=== PATIENT | male | born 1980 | race Caucasian/White ===

== ENCOUNTER 2020-01-27 16:57 | Emergency (ER) | payer BC, OTHER ==
[~2020-01-27] VITALS: Ht 180 cm; Wt 109.0 kg
--- NOTE | 2020-01-27 17:18 | ED General ---
General Stated Complaint: FALL Source of Information: Patient Exam Limitations: No Limitations History of Present Illness Date Seen by Provider: Jan 27, 2020 Time Seen by Provider: 17:14 Initial Comments To ER with reports of a fall. He was up on the top rung of a ladder working on his soffit on his house. The ladder tipped and he fell landing on his right side. He complains of pain with limited range of motion to the right shoulder. Did not hit his head and denies neck pain. He does have some posterior and lateral left flank pain. He denies any numbness or tingling of extremities. He recalls all events. Timing/Duration: 1/2 Hour Severity: Moderate Associated Systoms: Denies Symptoms; No Cough, No Headaches, No Seizure, No Shortness of Air, No Syncope, No Weakness Allergies and Home Medications Allergies Coded Allergies: No Known Drug Allergies (Unverified , 05/13/10) Home Medications No Active Prescriptions or Reported Meds Patient Home Medication List Home Medication List Reviewed: Yes Review of Systems Review of Systems Constitutional: see HPI EENTM: see HPI Respiratory: no symptoms reported Cardiovascular: no symptoms reported Musculoskeletal: see HPI, joint pain, muscle pain Skin: no symptoms reported Psychiatric/Neurological: No Symptoms Reported Hematologic/Lymphatic: No Symptoms Reported Past Yyqnpry-Idirin-Zfstty Hx Patient Social History Recent Foreign Travel: No Contact w/Someone Who Travel: No Past Medical History Reproductive Disorders: No Physical Exam Vital Signs Vital Signs - First Documented 01/27/20 17:00 Temp 36.2 Pulse 69 Resp 18 B/P (MAP) 149/93 (111) Pulse Ox 97 Capillary Refill : Height, Weight, BMI Height: '" Weight: lbs. oz. kg; BMI Method: General Appearance: No Apparent Distress, WD/WN, Other (alert and oriented, walks into room 6 without antalgic gait, alert and oriented GCS 15. Offered pain medication but states he doesn't hurt that bad.) Eyes: Bilateral Eye Normal Inspection, Bilateral Eye PERRL, Bilateral Eye Other (no Francisco sign or hemotympanum.) HEENT: PERRL/EOMI, TMs Normal Neck: Full Range of Motion, Normal Inspection, Non Tender; No Tender Lateral, No Tender Midline Respiratory: No Accessory Muscle Use, No Respiratory Distress Cardiovascular: Regular Rate, Rhythm, Normal Peripheral Pulses Gastrointestinal: Normal Bowel Sounds, Soft, Tenderness (minimal left lateral and posterior flank tenderness but no bruising or ecchymosis or abrasion) Extremity: Normal Capillary Refill, Normal Inspection Neurologic/Psychiatric: Alert, Oriented x3 Skin: Normal Color, Warm/Dry Progress/Results/Core Measures Suspected Sepsis SIRS Temperature: Pulse: Respiratory Rate: Laboratory Tests 01/27/20 17:15: White Blood Count 11.2H Blood Pressure / Mean: Laboratory Tests 01/27/20 17:15: Platelet Count 350 Results/Orders Lab Results Laboratory Tests Test 01/27/20 17:15 Range/Units White Blood Count 11.2 H 4.3-11.0 10^3/uL Red Blood Count 4.81 4.30-5.52 10^6/uL Hemoglobin 15.0 13.3-17.7 g/dL Hematocrit 45 40-54 % Mean Corpuscular Volume 93 80-99 fL Mean Corpuscular Hemoglobin 31 25-34 pg Mean Corpuscular Hemoglobin Concent 34 32-36 g/dL Red Cell Distribution Width 12.7 10.0-14.5 % Platelet Count 350 130-400 10^3/uL Mean Platelet Volume 11.6 9.0-12.2 fL Immature Granulocyte % (Auto) 1 % Neutrophils (%) (Auto) 64 42-75 % Lymphocytes (%) (Auto) 29 12-44 % Monocytes (%) (Auto) 5 0-12 % Eosinophils (%) (Auto) 1 0-10 % Basophils (%) (Auto) 0 0-10 % Neutrophils # (Auto) 7.1 1.8-7.8 10^3/uL Lymphocytes # (Auto) 3.3 1.0-4.0 10^3/uL Monocytes # (Auto) 0.6 0.0-1.0 10^3/uL Eosinophils # (Auto) 0.1 0.0-0.3 10^3/uL Basophils # (Auto) 0.0 0.0-0.1 10^3/uL Immature Granulocyte # (Auto) 0.1 0.0-0.1 10^3/uL My Orders Orders - ESTEFANI BENTLEY APRN Cbc With Automated Diff (01/27/20 17:08) Ed Iv/Invasive Line Start (01/27/20 17:08) Ct Abdomen/Pelvis W (01/27/20 17:08) Shoulder, Right, 3 Views (01/27/20 17:08) Chest Pa/Lat (2 View) (01/27/20 17:20) Iohexol Injection (Omnipaque 350 Mg/Ml 1 (01/27/20 18:00) Received Contrast (Hold Metformin- Contr (01/27/20 18:00) Ns (Ivpb) (Sodium Chloride 0.9% Ivpb Bag (01/27/20 18:00) Medications Given in ED Current Medications Medications Dose Ordered Sig/Sergo Route Start Time Stop Time Status Last Admin Dose Admin Iohexol 100 ml ONCE ONCE IV 01/27/20 18:00 01/27/20 18:01 DC 01/27/20 17:56 100 ML Sodium Chloride 100 ml ONCE ONCE IV 01/27/20 18:00 01/27/20 18:01 DC 01/27/20 17:56 80 ML Vital Signs/I&O 01/27/20 17:00 Temp 36.2 Pulse 69 Resp 18 B/P (MAP) 149/93 (111) Pulse Ox 97 Capillary Refill : Departure Impression Primary Impression: Fall Additional Impressions: Internal derangement of right shoulder Muscle strain Disposition: HOME, SELF-CARE Condition: Stable Departure-Patient Inst. Decision time for Depature: 18:04 Referrals: CYN QUICK MD (PCP) Primary Care Physician Patient Instructions: Muscle Strain (DC), Shoulder Pain (DC) Add. Discharge Instructions: 1. Follow-up with your doctor next week for recheck 2. Wear the sling as needed for comfort. Take pain medication as directed. Return to ER for any worsening. Scripts No Active Prescriptions or Reported Meds ESTEFANI BENTLEY APRN Jan 27, 2020 17:18
[2020-01-27 17:21] LABS: BASOPHILS % (AUTO) 0 % (0-10); EOSINOPHILS # (AUTO) 0.1 10^3/uL (0.0-0.3); EOSINOPHILS % (AUTO) 1 % (0-10); HEMATOCRIT 45 % (40-54); LYMPHOCYTES # (AUTO) 3.3 10^3/uL (1.0-4.0); LYMPHOCYTES % (AUTO) 29 % (12-44); MEAN CORPUSCULAR HEMOGLOBIN 31 pg (25-34); MEAN CORPUSCULAR HGB CONC 34 g/dL (32-36); MEAN CORPUSCULAR VOLUME 93 fL (80-99); MEAN PLATELET VOLUME 11.6 fL (9.0-12.2); MONOCYTES # (AUTO) 0.6 10^3/uL (0.0-1.0); MONOCYTES % (AUTO) 5 % (0-12); NEUTROPHILS # (AUTO) 7.1 10^3/uL (1.8-7.8); NEUTROPHILS % (AUTO) 64 % (42-75); PLATELET COUNT 350 10^3/uL (130-400); WHITE BLOOD COUNT 11.2 10^3/uL (4.3-11.0)
--- NOTE | 2020-01-27 17:39 | Diagnostic Imaging Report ---
INDICATION: Fall. EXAMINATION: PA and lateral views of the chest were obtained. FINDINGS: The heart size, mediastinal configuration, and pulmonary vascularity are within normal limits. There is no pleural effusion, pneumothorax, or pneumonia. The osseous structures are unremarkable. IMPRESSION: No acute cardiopulmonary abnormality. Dictated by: Dictated on workstation # [id number]
--- NOTE | 2020-01-27 17:40 | Diagnostic Imaging Report ---
INDICATION: Fall. EXAMINATION: Three views of the right shoulder were obtained. FINDINGS: The alignment is normal. There is no fracture or dislocation. Right lung is clear. Soft tissues are unremarkable. IMPRESSION: No focal abnormality in the right shoulder. Dictated by: Dictated on workstation # [id number]
[2020-01-27] MEDS ORDERED: IOHEXOL 350 MG/ML 100 ML (OMNIPAQUE 350) VIAL IV ONE (18:00)
[2020-01-27] MEDS ORDERED: NS 100 ML (IVPB) BAG IV ONE (18:00)
[2020-01-27] MEDS ORDERED: HOLD METFORMIN - RECEIVED CONTRAST 20 ML VIAL IV SCH (18:00)
--- NOTE | 2020-01-27 18:02 | Diagnostic Imaging Report ---
PROCEDURE: CT abdomen and pelvis with contrast. TECHNIQUE: Multiple contiguous axial images were obtained through the abdomen and pelvis after administration of intravenous contrast. Auto Exposure Controls were utilized during the CT exam to meet ALARA standards for radiation dose reduction. All CT scans use one or more of the following dose optimizing techniques: automated exposure control, MA and/or KvP adjustment based on patient size and exam type or iterative reconstruction. INDICATION: Fall with pain. FINDINGS: The heart size is normal. The lung bases are clear. The liver is normal in size and without focal lesions. Gallbladder is unremarkable. There is no biliary ductal dilatation. Spleen is normal. The pancreas and adrenal glands are unremarkable. Kidneys are unremarkable. The aorta is nonaneurysmal. Bowel gas pattern is nonspecific. There is no free air. There is no ascites. There is no pelvic mass, adenopathy or free fluid. The osseous structures are unremarkable. IMPRESSION: No acute abnormality in the abdomen or pelvis. Dictated by: Dictated on workstation # [id number]
[2020-01-27] MEDS ORDERED: RX-HYDROCODONE/APAP 5/325 MG #4 TAB PK PO PRN (18:15)
[2020-01-27 18:17] VITALS: BP 149/93
--- NOTE | 2020-01-27 18:22 | NUR ---
Note undone in EDM - 01/27/20 at 1823 by NADIA Pt resting on ED cart. SPO2 96% via RA. HR 76. BP 128/65
== END 2020-01-27 18:17 ==
LOC: EDUNIT# 16:57 → ER 16:59
DX: S46.811A Strain of other muscles, fascia and tendons at shoulder and upper arm level, right arm, initial encounter (principal); M24.9 Joint derangement, unspecified; W11.XXXA Fall on and from ladder, initial encounter; Y92.009 Unspecified place in unspecified non-institutional (private) residence as the place of occurrence of the external cause
CPT/HCPCS: 36415; 71046; 73030; 74177; 85025

== ENCOUNTER 2021-05-28 12:56 | Outpatient (CLI) | payer BC | END 2021-05-28 13:10 | LOC: SLEEP 12:56 | PROVIDERS: ATTEND Nurse Practitioner Family | DX: G47.10 Hypersomnia, unspecified (principal) | CPT/HCPCS: G0399 ==